=== PATIENT | female | born 1990 | race American Indian/Alaskan Native ===

== ENCOUNTER 2018-05-11 22:45 | Emergency (ER) | payer MEDICAID, OTHER ==
[2018-05-12 00:41] VITALS: BP 99/64
[2018-05-12 01:46] LABS: Bilirubin,Urine NEG (Negative); Blood,Urine NEG (Negative); Color,Urine Yellow (Yellow); Mucus,Urine 1+ /HPF; Protein,Urine <15 mg/dL mg/dL (Negative); WBC,Urine < 1.0 /HPF (0.0-6.0)
[2018-05-12 01:48] LABS: HCG Qualitative,Urine Negative (Negative)
--- NOTE | 2018-05-12 02:43 | Emergency Department Report ---
ED General Adult HPI - General Chief complaint: Sore Throat Stated complaint: THROAT PAIN Time Seen by Provider: 05/12/18 02:37 Source: patient Mode of arrival: Ambulatory Limitations: No Limitations - History of Present Illness Initial comments: 27-year-old -[place] female comes in complaining of sore throat 2 days with subjective fever yesterday. She also thinks that she has a urinary tract infection. She reports she has burning with urination. She is sexually active but uses condoms all the time. She does admit to vaginal discharge. She reports she has been using Chloraseptic for her throat. She does have a cough with lots of green thick mucus. -: days(s) (2) - Related Data Home Medications Medication Instructions Recorded Confirmed Last Taken Tablet 1 tab PO QDAY 03/15/15 07/27/15 03/14/15 17:00 Previous Rx's Medication Instructions Recorded Last Taken Type Albuterol Sulfate [Ventolin HFA] 2 puff IH Q4H PRN #1 hfa.aer.ad 03/15/15 Unknown Rx Azithromycin [Zithromax Z-CAMERON] 250 mg PO DAILY #1 pkg 03/15/15 Unknown Rx Loratadine [Claritin] 10 mg PO DAILY #30 tablet 03/15/15 Unknown Rx Labetalol [Normodyne TAB] 100 mg PO BID #60 tablet 07/27/15 Unknown Rx Ibuprofen [Motrin 600 MG tab] 600 mg PO Q8H PRN #30 tablet 05/12/18 Unknown Rx metroNIDAZOLE [Metronidazole] 500 mg PO TID 7 Days #21 tablet 05/12/18 Unknown Rx Allergies Allergy/AdvReac Type Severity Reaction Status Date / Time No Known Allergies Allergy Verified 07/21/15 03:07 ED Review of Systems ROS: Stated complaint: THROAT PAIN Other details as noted in HPI Constitutional: fever Eyes: denies: eye pain, eye discharge, vision change ENT: throat pain Respiratory: cough Cardiovascular: denies: chest pain, palpitations Endocrine: no symptoms reported Gastrointestinal: denies: abdominal pain, nausea, diarrhea Genitourinary: dysuria Musculoskeletal: denies: back pain, joint swelling, arthralgia Skin: denies: rash, lesions Neurological: denies: headache, weakness, paresthesias Psychiatric: denies: anxiety, depression Hematological/Lymphatic: denies: easy bleeding, easy bruising ED Past Medical Hx - Past Medical History Hx Hypertension: No Hx Congestive Heart Failure: No Hx Diabetes: No Hx Deep Vein Thrombosis: No Hx Renal Disease: No Hx Sickle Cell Disease: No Hx Seizures: No Hx Asthma: Yes (albuterol prn) Hx COPD: No Hx HIV: No - Surgical History Additional Surgical History: HEMORRHOIDECTOMY - Social History Smoking Status: Never Smoker - Medications Home Medications: Home Medications Medication Instructions Recorded Confirmed Last Taken Type Albuterol Sulfate [Ventolin HFA] 2 puff IH Q4H PRN #1 hfa.aer.ad 03/15/15 Unknown Rx Azithromycin [Zithromax Z-CAMERON] 250 mg PO DAILY #1 pkg 03/15/15 07/27/15 Unknown Rx Loratadine [Claritin] 10 mg PO DAILY #30 tablet 03/15/15 07/27/15 Unknown Rx Tablet 1 tab PO QDAY 03/15/15 07/27/15 03/14/15 17:00 History Labetalol [Normodyne TAB] 100 mg PO BID #60 tablet 07/27/15 Unknown Rx Ibuprofen [Motrin 600 MG tab] 600 mg PO Q8H PRN #30 tablet 05/12/18 Unknown Rx metroNIDAZOLE [Metronidazole] 500 mg PO TID 7 Days #21 tablet 05/12/18 Unknown Rx ED Physical Exam - General Limitations: No Limitations General appearance: alert, in no apparent distress - Head Head exam: Present: atraumatic, normocephalic - Eye Eye exam: Present: PERRL, EOMI - ENT ENT exam: Present: TM's normal bilaterally - Expanded ENT Exam Expanded Throat exam: Positive: tonsillar erythema, tonsillar exudate - Neck Neck exam: Present: normal inspection - Respiratory Respiratory exam: Present: normal lung sounds bilaterally. Absent: respiratory distress - Cardiovascular Cardiovascular Exam: Present: regular rate, normal rhythm. Absent: systolic murmur, diastolic murmur, rubs, gallop - GI/Abdominal GI/Abdominal exam: Present: soft, normal bowel sounds - Extremities Exam Extremities exam: Present: normal inspection - Neurological Exam Neurological exam: Present: alert, oriented X3 - Psychiatric Psychiatric exam: Present: normal affect, normal mood - Skin Skin exam: Present: warm, dry, intact, normal color. Absent: rash ED Course Vital Signs 05/12/18 00:39 Temperature 98.5 F Pulse Rate 72 Respiratory 20 Rate Blood Pressure 99/64 O2 Sat by Pulse 100 Oximetry ED Medical Decision Making - Medical Decision Making Patient's been seen about this provider in fast track. Negative strep tests Negative urine Positive wet prep for bacteria vaginosis greater than 20% clue cells Given penicillin G1 0.2 million units IM Discharge patient on metronidazole 500 mg by mouth 3 times a day 7 days dispensed 21 Critical care attestation.: If time is entered above; I have spent that time in minutes in the direct care of this critically ill patient, excluding procedure time. ED Disposition Clinical Impression: Acute pharyngitis Qualifiers: Pharyngitis/tonsillitis etiology: unspecified etiology Qualified Code(s): J02.9 - Acute pharyngitis, unspecified Disposition: TO HOME OR SELFCARE Is pt being admited?: No Does the pt Need Aspirin: No Condition: Stable Additional Instructions: Please take antibiotics as prescribed. If symptoms persist or gets worse follow -up with her primary care provider. Prescriptions: Ibuprofen [Motrin 600 MG tab] 600 mg PO Q8H PRN #30 tablet PRN Reason: Pain metroNIDAZOLE [Metronidazole] 500 mg PO TID 7 Days #21 tablet Referrals: PRIMARY CARE, [Primary Care Provider] - 3-5 Days Forms: STI Treatment and Prevention, Work/School Release Form(ED)
[2018-05-12] MEDS ORDERED: LIDOCAINE VISCOUS 2% PO ONE (03:04)
[2018-05-12] MEDS ORDERED: MOTRIN PO ONE (03:04)
[2018-05-12] MEDS ORDERED: BICILLIN L-A IM ONE (03:09)
== END 2018-05-12 04:15 | disposition home or self-care (01) ==
LOC: ED 22:45
DX: J02.9 Acute pharyngitis, unspecified (principal); R30.0 Dysuria; J45.909 Unspecified asthma, uncomplicated
CPT/HCPCS: 81001; 81025; 87116; 87210; 87430; 96372; 99283; J0561

== ENCOUNTER 2020-12-12 00:12 | Emergency (ER) | payer MEDICAID ==
--- NOTE | 2020-12-12 01:01 | XRay Report ---
CHEST 1 VIEW INDICATION / CLINICAL INFORMATION: Chest Pain. COMPARISON: None available. FINDINGS: SUPPORT DEVICES: None. HEART / MEDIASTINUM: No significant abnormality. LUNGS / PLEURA: No significant pulmonary or pleural abnormality. No pneumothorax. ADDITIONAL FINDINGS: No significant additional findings. IMPRESSION: 1. No acute findings. Signer Name: Anabelle Ruggiero MD Signed: 12/12/2020 12:56 AM Workstation Name: [id number]
[2020-12-12 01:31] LABS: Hematocrit 42.9 % (30.3-42.9); Hemoglobin 14.9 gm/dl (10.1-14.3); Mean Corpuscular HGB Conc 35 % (30-34); Mean Corpuscular Volume 95 fl (79-97); Red Blood Count 4.53 M/mm3 (3.65-5.03); Red Cell Distribution Width 12.7 % (13.2-15.2)
[2020-12-12 01:37] LABS: Platelet Count 133 K/mm3 (140-440)
[2020-12-12 01:38] LABS: Basophils % (Auto) 0.5 % (0.0-1.8); Eosinophils # (Auto) 0.1 K/mm3 (0.0-0.4); Eosinophils % (Auto) 2.3 % (0.0-4.3); Lymphocytes % (Auto) 24.2 % (13.4-35.0); Monocytes # (Auto) 0.7 K/mm3 (0.0-0.8); Monocytes % (Auto) 16.1 % (0.0-7.3)
[2020-12-12 01:49] LABS: Blood Urea Nitrogen 10 mg/dL (7-17); Calcium 9.2 mg/dL (8.4-10.2); Hemolysis Index 12
[2020-12-12 02:01] LABS: BUN/Creatinine Ratio 20
[2020-12-12 03:54] VITALS: BP 102/69
--- NOTE | 2020-12-12 03:59 | Emergency Department Report ---
ED Chest Pain HPI - General Chief Complaint: Chest Pain Stated Complaint: CHEST PAIN Time Seen by Provider: 12/12/20 03:39 Source: patient Mode of arrival: Ambulatory Limitations: No Limitations - History of Present Illness Initial Comments: 30-year-old female with right-sided chest pain x3 days. Patient states it feels like trapped gas. She denies any shortness of breath, nausea or vomiting. Worse with deep breath. Patient states she tried Deisy-Winona and times, but that provided no relief. She denies any leg pain or swelling. MD Complaint: chest pain -: days(s) (3) Onset: during rest Pain Location: right chest Pain Radiation: none Severity: moderate Severity scale (0 -10): 0 Quality: other (like gas) Consistency: constant Improves With: nothing Worsens With: inspiration, movement re: denies: nausea, vomting, diaphoresis, dyspnea Other Symptoms: denies: cough, fever - Related Data Home Medications Medication Instructions Recorded Confirmed Last Taken Tablet 1 tab PO QDAY 03/15/15 07/27/15 03/14/15 17:00 Previous Rx's Medication Instructions Recorded Last Taken Type Albuterol Sulfate [Ventolin HFA] 2 puff IH Q4H PRN #1 hfa.aer.ad 03/15/15 Unknown Rx Azithromycin [Zithromax Z-CAMERON] 250 mg PO DAILY #1 pkg 03/15/15 Unknown Rx Loratadine (Nf) [Claritin] 10 mg PO DAILY #30 tablet 03/15/15 Unknown Rx labetaloL [Labetalol 100mg TAB] 100 mg PO BID #60 tablet 07/27/15 Unknown Rx Ibuprofen [Motrin 600 MG tab] 600 mg PO Q8H PRN #30 tablet 05/12/18 Unknown Rx metroNIDAZOLE [Metronidazole] 500 mg PO TID 7 Days #21 tablet 05/12/18 Unknown Rx Naproxen [Naprosyn] 500 mg PO BID #20 tablet 12/12/20 Unknown Rx traMADoL [Ultram] 50 mg PO Q6HR PRN #7 tablet 12/12/20 Unknown Rx Allergies Allergy/AdvReac Type Severity Reaction Status Date / Time No Known Allergies Allergy Verified 07/21/15 03:07 Heart Score - HEART Score History: Slightly suspicious EKG: Normal Age: < 45 Risk factors: No known risk factors Troponin: < normal limit HEART Score: 0 ED Review of Systems ROS: Stated complaint: CHEST PAIN Other details as noted in HPI Comment: All other systems reviewed and negative Constitutional: denies: chills, fever Respiratory: denies: shortness of breath Cardiovascular: chest pain Musculoskeletal: other (Denies leg pain or swelling) ED Past Medical Hx - Past Medical History Previous Medical History?: Yes Hx Hypertension: No Hx Congestive Heart Failure: No Hx Diabetes: No Hx Deep Vein Thrombosis: No Hx Renal Disease: No Hx Sickle Cell Disease: No Hx Seizures: No Hx Asthma: Yes (albuterol prn) Hx COPD: No Hx HIV: No - Surgical History Past Surgical History?: Yes Additional Surgical History: HEMORRHOIDECTOMY - Social History Smoking Status: Current Every Day Smoker Substance Use Type: None - Medications Home Medications: Home Medications Medication Instructions Recorded Confirmed Last Taken Type Albuterol Sulfate [Ventolin HFA] 2 puff IH Q4H PRN #1 hfa.aer.ad 03/15/15 07/27/15 Unknown Rx Azithromycin [Zithromax Z-CAMERON] 250 mg PO DAILY #1 pkg 03/15/15 07/27/15 Unknown Rx Loratadine (Nf) [Claritin] 10 mg PO DAILY #30 tablet 03/15/15 07/27/15 Unknown Rx Tablet 1 tab PO QDAY 03/15/15 07/27/15 03/14/15 17:00 History labetaloL [Labetalol 100mg TAB] 100 mg PO BID #60 tablet 07/27/15 Unknown Rx Ibuprofen [Motrin 600 MG tab] 600 mg PO Q8H PRN #30 tablet 05/12/18 Unknown Rx metroNIDAZOLE [Metronidazole] 500 mg PO TID 7 Days #21 tablet 05/12/18 Unknown Rx Naproxen [Naprosyn] 500 mg PO BID #20 tablet 12/12/20 Unknown Rx traMADoL [Ultram] 50 mg PO Q6HR PRN #7 tablet 12/12/20 Unknown Rx ED Physical Exam - General Limitations: No Limitations General appearance: alert, in no apparent distress - Eye Eye exam: Present: normal appearance, EOMI - ENT ENT exam: Present: mucous membranes moist - Neck Neck exam: Present: normal inspection - Respiratory Respiratory exam: Present: normal lung sounds bilaterally. Absent: respiratory distress - Cardiovascular Cardiovascular Exam: Present: regular rate, normal rhythm - GI/Abdominal GI/Abdominal exam: Present: soft. Absent: distended, tenderness - Extremities Exam Extremities exam: Present: normal inspection - Neurological Exam Neurological exam: Present: alert, oriented X3 - Psychiatric Psychiatric exam: Present: normal affect, normal mood - Skin Skin exam: Present: warm, dry, intact, normal color ED Course Vital Signs 12/12/20 12/12/20 12/12/20 00:17 03:53 05:40 Temperature 98.9 F Pulse Rate 131 H 84 88 Respiratory 20 16 16 Rate Blood Pressure 113/69 Blood Pressure 102/69 [Right] O2 Sat by Pulse 100 100 100 Oximetry ED Medical Decision Making - Lab Data Result diagrams: 12/12/20 00:45 12/12/20 00:45 - EKG Data -: EKG Interpreted by Me EKG shows normal: sinus rhythm, axis, intervals, QRS complexes, ST-T waves Rate: tachycardia (rate 118) - EKG Data Interpretation: no acute changes - Radiology Data Radiology results: report reviewed, image reviewed - Differential Diagnosis pleurisy, pneumothorax, GERD Critical care attestation.: If time is entered above; I have spent that time in minutes in the direct care of this critically ill patient, excluding procedure time. ED Disposition Clinical Impression: Chest pain Disposition: - TO HOME OR SELFCARE Is pt being admited?: No Condition: Stable Instructions: Nonspecific Chest Pain, Adult, [id number], Pleurisy, [id number], Chest Pain (ED) Prescriptions: Naproxen [Naprosyn] 500 mg PO BID #20 tablet traMADoL [Ultram] 50 mg PO Q6HR PRN #7 tablet PRN Reason: Pain Referrals: PRIMARY CARE, [Primary Care Provider] - 3-5 Days [facility] [Provider Group] - 3-5 Days Time of Disposition: 05:22
--- NOTE | 2020-12-12 05:19 | Cat Scan Report ---
CTA CHEST WITH IV CONTRAST INDICATION / CLINICAL INFORMATION: Pt states RIGHT sided chest pain with S.O.B. x 3 days. Childhood history of Asthma.. TECHNIQUE: Axial CT images were obtained through the chest after injection of 100 mL IV contrast. 3 plane MIP an d/or 3D reconstructions were produced. All CT scans at this location are performed using CT dose redu ction for [facility] by means of automated exposure control. COMPARISON: Chest radiograph 12/12/2020 FINDINGS: PULMONARY ARTERIES: No pulmonary emboli. THORACIC AORTA: No significant abnormality. HEART: No significant abnormality. CORONARY ARTERIES: No significant calcification. PLEURA: No pleural effusion. No pneumothorax. LYMPH NODES: No significant adenopathy. LUNGS: No acute air space or interstitial disease. ADDITIONAL FINDINGS: None. UPPER ABDOMEN: No acute findings. SKELETAL STRUCTURES: No significant osseous abnormality. IMPRESSION: 1. No CT evidence for pulmonary embolism. 2. Both lungs are clear. Signer Name: Anabelle Ruggiero MD Signed: 12/12/2020 5:15 AM Workstation Name: [id number]
== END 2020-12-12 05:40 | disposition home or self-care (01) ==
LOC: ED 00:12
DX: R07.89 Other chest pain (principal); J45.909 Unspecified asthma, uncomplicated; F17.200 Nicotine dependence, unspecified, uncomplicated; Z79.899 Other long term (current) drug therapy
CPT/HCPCS: 36415; 71045; 71275; 80048; 84484; 85025; 93005; 99284; Q9967

== ENCOUNTER 2021-03-25 16:59 | Emergency (ER) | payer OTHER, MEDICAID ==
[2021-03-25 17:31] VITALS: BP 102/56
--- NOTE | 2021-03-25 17:51 | Emergency Department Report ---
ED ENT HPI - General Chief complaint: Earache Stated complaint: RIGHT EAR PAIN Time Seen by Provider: 03/25/21 17:27 Source: patient Mode of arrival: Ambulatory Limitations: No Limitations - History of Present Illness Initial comments: This is a 30-year-old male brought by mother nontoxic, well nourished in appearance, no acute signs of distress presents to the ED with c/o of right earache times several days. Patient denies any ear drainage. Patient denies any trauma to the area. Patient denies any mastoid tenderness or tragus tenderness. Patient denies hearing decrease or hearing changes. Patient denies any fever, chills, nausea, vomiting, chest pain, short of breath, headache or stiff neck. Patient denies any drug allergies or significant past medical history. MD complaint: ear pain -: days(s) Location: R ear Severity: mild Severity scale (0 -10): 8 Quality: aching Consistency: constant Improves with: none Worsens with: none Associated Symptoms: denies: fever, cough, gum swelling, toothache, pain with swallowing, sore throat, tinnitus, hearing loss, discharge from ear, rhinorrhea - Related Data Home Medications Medication Instructions Recorded Confirmed Last Taken Tablet 1 tab PO QDAY 03/15/15 07/27/15 03/14/15 17:00 Previous Rx's Medication Instructions Recorded Last Taken Type Albuterol Sulfate [Ventolin HFA] 2 puff IH Q4H PRN #1 hfa.aer.ad 03/15/15 Unknown Rx Azithromycin [Zithromax Z-CAMERON] 250 mg PO DAILY #1 pkg 03/15/15 Unknown Rx Loratadine (Nf) [Claritin] 10 mg PO DAILY #30 tablet 03/15/15 Unknown Rx labetaloL [Labetalol 100mg TAB] 100 mg PO BID #60 tablet 07/27/15 Unknown Rx Ibuprofen [Motrin 600 MG tab] 600 mg PO Q8H PRN #30 tablet 05/12/18 Unknown Rx metroNIDAZOLE [Metronidazole] 500 mg PO TID 7 Days #21 tablet 05/12/18 Unknown Rx Naproxen [Naprosyn] 500 mg PO BID #20 tablet 12/12/20 Unknown Rx traMADoL [Ultram] 50 mg PO Q6HR PRN #7 tablet 12/12/20 Unknown Rx Amoxicillin [Amoxicillin TAB] 875 mg PO BID #20 tablet 03/25/21 Unknown Rx Allergies Allergy/AdvReac Type Severity Reaction Status Date / Time No Known Allergies Allergy Verified 07/21/15 03:07 ED Dental HPI - General Chief complaint: Earache Stated complaint: RIGHT EAR PAIN Time Seen by Provider: 03/25/21 17:27 Source: patient Mode of arrival: Ambulatory Limitations: No Limitations - Related Data Home Medications Medication Instructions Recorded Confirmed Last Taken Tablet 1 tab PO QDAY 03/15/15 07/27/15 03/14/15 17:00 Previous Rx's Medication Instructions Recorded Last Taken Type Albuterol Sulfate [Ventolin HFA] 2 puff IH Q4H PRN #1 hfa.aer.ad 03/15/15 Unknown Rx Azithromycin [Zithromax Z-CAMERON] 250 mg PO DAILY #1 pkg 03/15/15 Unknown Rx Loratadine (Nf) [Claritin] 10 mg PO DAILY #30 tablet 03/15/15 Unknown Rx labetaloL [Labetalol 100mg TAB] 100 mg PO BID #60 tablet 07/27/15 Unknown Rx Ibuprofen [Motrin 600 MG tab] 600 mg PO Q8H PRN #30 tablet 05/12/18 Unknown Rx metroNIDAZOLE [Metronidazole] 500 mg PO TID 7 Days #21 tablet 05/12/18 Unknown Rx Naproxen [Naprosyn] 500 mg PO BID #20 tablet 12/12/20 Unknown Rx traMADoL [Ultram] 50 mg PO Q6HR PRN #7 tablet 12/12/20 Unknown Rx Amoxicillin [Amoxicillin TAB] 875 mg PO BID #20 tablet 03/25/21 Unknown Rx Allergies Allergy/AdvReac Type Severity Reaction Status Date / Time No Known Allergies Allergy Verified 07/21/15 03:07 ED Review of Systems ROS: Stated complaint: RIGHT EAR PAIN Other details as noted in HPI Comment: All other systems reviewed and negative Constitutional: denies: chills, fever Eyes: denies: eye pain, eye discharge, vision change ENT: ear pain. denies: throat pain, dental pain, hearing loss, congestion Respiratory: denies: cough, shortness of breath, wheezing Cardiovascular: denies: chest pain, palpitations Endocrine: no symptoms reported Gastrointestinal: denies: abdominal pain, nausea, diarrhea Genitourinary: denies: urgency, dysuria, discharge Musculoskeletal: denies: back pain, joint swelling, arthralgia Skin: denies: rash, lesions Neurological: denies: headache, weakness, paresthesias Psychiatric: denies: anxiety, depression Hematological/Lymphatic: denies: easy bleeding, easy bruising ED Past Medical Hx - Past Medical History Previous Medical History?: Yes Hx Hypertension: No Hx Congestive Heart Failure: No Hx Diabetes: No Hx Deep Vein Thrombosis: No Hx Renal Disease: No Hx Sickle Cell Disease: No Hx Seizures: No Hx Asthma: Yes (albuterol prn) Hx COPD: No Hx HIV: No - Surgical History Past Surgical History?: Yes Additional Surgical History: HEMORRHOIDECTOMY - Social History Smoking Status: Never Smoker Substance Use Type: Alcohol - Medications Home Medications: Home Medications Medication Instructions Recorded Confirmed Last Taken Type Albuterol Sulfate [Ventolin HFA] 2 puff IH Q4H PRN #1 hfa.aer.ad 03/15/15 07/27/15 Unknown Rx Azithromycin [Zithromax Z-CAMERON] 250 mg PO DAILY #1 pkg 03/15/15 07/27/15 Unknown Rx Loratadine (Nf) [Claritin] 10 mg PO DAILY #30 tablet 03/15/15 07/27/15 Unknown Rx Tablet 1 tab PO QDAY 03/15/15 07/27/15 03/14/15 17:00 History labetaloL [Labetalol 100mg TAB] 100 mg PO BID #60 tablet 07/27/15 Unknown Rx Ibuprofen [Motrin 600 MG tab] 600 mg PO Q8H PRN #30 tablet 05/12/18 Unknown Rx metroNIDAZOLE [Metronidazole] 500 mg PO TID 7 Days #21 tablet 05/12/18 Unknown Rx Naproxen [Naprosyn] 500 mg PO BID #20 tablet 12/12/20 Unknown Rx traMADoL [Ultram] 50 mg PO Q6HR PRN #7 tablet 12/12/20 Unknown Rx Amoxicillin [Amoxicillin TAB] 875 mg PO BID #20 tablet 03/25/21 Unknown Rx ED Physical Exam - General Limitations: No Limitations General appearance: alert, in no apparent distress - Head Head exam: Present: atraumatic, normocephalic - Eye Eye exam: Present: normal appearance - Expanded ENT Exam Expanded Ear exam: Present: normal external inspection TM/Canal exam: Erythema: Right TM, Bulging: Right TM Mouth exam: Present: normal external inspection. Absent: drooling, trismus, muffled voice Teeth exam: Present: normal inspection Throat exam: Positive: normal inspection, other (Uvula midline). Negative: tonsillar erythema, tonsillomegaly, tonsillar exudate, R peritonsillar mass, L peritonsillar mass - Neck Neck exam: Present: normal inspection, full ROM. Absent: tenderness, meningismus, lymphadenopathy - Respiratory Respiratory exam: Absent: respiratory distress - Cardiovascular Cardiovascular Exam: Present: regular rate - Extremities Exam Extremities exam: Present: full ROM - Back Exam Back exam: Present: full ROM - Neurological Exam Neurological exam: Present: alert, oriented X3, normal gait - Psychiatric Psychiatric exam: Present: normal affect, normal mood - Skin Skin exam: Present: warm, dry, intact, normal color. Absent: rash ED Course Vital Signs 03/25/21 17:29 Temperature 99.1 F Pulse Rate 67 Respiratory 20 Rate Blood Pressure 102/56 O2 Sat by Pulse 100 Oximetry - Reevaluation(s) Reevaluation #1: 03/25/21 17:52 Patient is speaking in full sentences with no signs of distress noted. ED Medical Decision Making - Medical Decision Making Patient be treated with amoxicillin. Vital signs are stable. Patient was instructed to follow-up with a primary care doctor in 3-5 days or if symptoms worsen and continue return to emergency room as soon as possible. At time of discharge, the patient does not seem toxic or ill in appearance. No acute signs of distress noted. Patient agrees to discharge treatment plan of care. No further questions noted by the patient. Critical care attestation.: If time is entered above; I have spent that time in minutes in the direct care of this critically ill patient, excluding procedure time. ED Disposition Clinical Impression: Right otitis media Qualifiers: Otitis media type: unspecified Qualified Code(s): H66.91 - Otitis media, unspecified, right ear Disposition: DC-01 TO HOME OR SELFCARE Is pt being admited?: No Does the pt Need Aspirin: No Condition: Stable Instructions: Otitis Media, Adult, Gulu-ed-Loou Additional Instructions: Follow-up with a primary care doctor in 3-5 days or if symptoms worsen and continue return to emergency room as soon as possible. Prescriptions: Amoxicillin [Amoxicillin TAB] 875 mg PO BID #20 tablet Referrals: PRIMARY CARE, [Referring] - 3-5 Days ROXY TAVERA MD [Staff Physician] - 3-5 Days Forms: Work/School Release Form(ED) Time of Disposition: 17:53
== END 2021-03-25 17:53 | disposition home or self-care (01) ==
LOC: ED 16:59
DX: H66.91 Otitis media, unspecified, right ear (principal); J45.909 Unspecified asthma, uncomplicated; Z90.89 Acquired absence of other organs; Z79.1 Long term (current) use of non-steroidal anti-inflammatories (NSAID); Z79.2 Long term (current) use of antibiotics; Z79.899 Other long term (current) drug therapy
CPT/HCPCS: 99282

== ENCOUNTER 2022-03-25 23:41 | Emergency (ER) | payer MEDICAID, OTHER ==
--- NOTE | 2022-03-26 00:56 | XRay Report ---
CHEST 2 VIEWS INDICATION / CLINICAL INFORMATION: CHEST PAIN. COMPARISON: One view of the chest from 12/12/2020. FINDINGS: SUPPORT DEVICES: None. HEART / MEDIASTINUM: No significant abnormality. LUNGS / PLEURA: No significant pulmonary abnormality. No significant pleural effusion. No pneumothora x. ADDITIONAL FINDINGS: No significant additional findings. IMPRESSION: 1. No acute abnormality of the chest. Signer Name: Evens Roberto MD Signed: 03/26/2022 12:52 AM Workstation Name: [id number]
[2022-03-26 01:32] LABS: Basophils % (Auto) 0.5 % (0.0-1.8); Eosinophils # (Auto) 0.2 K/mm3 (0.0-0.4); Eosinophils % (Auto) 4.5 % (0.0-4.3); Hematocrit 42.6 % (30.3-42.9); Hemoglobin 14.3 gm/dl (10.1-14.3); Lymphocytes # (Auto) 1.1 K/mm3 (1.2-5.4); Lymphocytes % (Auto) 20.2 % (13.4-35.0); Mean Corpuscular HGB Conc 34 % (30-34); Mean Corpuscular Volume 93 fl (79-97); Monocytes # (Auto) 0.8 K/mm3 (0.0-0.8); Monocytes % (Auto) 15.3 % (0.0-7.3); Platelet Count 148 K/mm3 (140-440); Red Blood Count 4.58 M/mm3 (3.65-5.03); Red Cell Distribution Width 12.6 % (13.2-15.2)
[2022-03-26 01:35] LABS: Alanine Aminotransferase 9 units/L (7-56); Albumin 4.3 g/dL (3.9-5); Blood Urea Nitrogen 14 mg/dL (7-17); Hemolysis Index 7
[2022-03-26 01:42] LABS: BUN/Creatinine Ratio 20
--- NOTE | 2022-03-26 09:00 | Emergency Department Report ---
Minor Respiratory - HPI Chief Complaint: Chest Pain Stated Complaint: SOB Time Seen by Provider: 03/26/22 09:00 Duration: 2 Days Pain Location: Chest Severity: mild Minor Respiratory: Yes Able to Tolerate Fluids, Yes Chest Pain, No Rhinorrhea, No Sore Throat, No Ear Pain, No Cough, No Sick Contacts, No Hemoptysis, No Shortness of Breath, No Fever Other History: Patient is a 31-year-old female that comes to the emergency room with left-sided chest pain. She came in during the night because she could not get comfortable when trying to sleep. Pain is worse with movement. Patient denies fever or chills. Patient denies cough. Patient is ambulatory, nontoxic [id number] on arrival to the fast track. When I first called for her in the waiting room she was not there. And then she walked in the ER front doors. She states that she is taking Gas-X and Deisy-Zillah at home with no relief. ED Review of Systems ROS: Stated complaint: SOB Other details as noted in HPI Comment: All other systems reviewed and negative ED Past Medical Hx - Past Medical History Previous Medical History?: Yes Hx Hypertension: No Hx Congestive Heart Failure: No Hx Diabetes: No Hx Deep Vein Thrombosis: No Hx Renal Disease: No Hx Sickle Cell Disease: No Hx Seizures: No Hx Asthma: Yes (albuterol prn) Hx COPD: No Hx HIV: No - Surgical History Past Surgical History?: No Additional Surgical History: HEMORRHOIDECTOMY - Family History Family history: no significant - Social History Smoking Status: Never Smoker Substance Use Type: Alcohol Minor Respiratory Exam - Exam General: Vital signs noted. No distress. Alert and acting appropriately. HEENT: Yes Moist Mucous Membranes, No Pharyngeal Erythema, No Pharyngeal Exudates, No Rhinorrhea, No Conjuctival Injection, No Frontal Tenderness, No Maxillary Tenderness Ear: Neither TM Bulge, Neither TM Erythema, Neither EAC Pain, Neither EAC Discharge Neck: Yes Supple, No Adenopathy Lungs: Yes Good Air Exchange, No Wheezes, No Ronchi, No Stridor, No Cough, No Labored Respirations, No Retractions, No Use of Accessory Muscles, No Other Abnormal Lung Sounds Heart: Yes Regular, No Murmur Abdomen: Yes Normal Bowel Sounds, No Tenderness, No Peritoneal Signs Skin: No Rash, No Edema Neurologic: Alert and oriented, no deficits. Musculoskeletal: Unremarkable. ED Course Vital Signs 03/25/22 23:45 Temperature 98.4 F Pulse Rate 97 H Respiratory 18 Rate Blood Pressure 132/78 O2 Sat by Pulse 100 Oximetry ED Medical Decision Making - Lab Data Result diagrams: 03/26/22 00:49 03/26/22 00:49 - EKG Data -: EKG Interpreted by Me EKG shows normal: sinus rhythm Rate: normal - EKG Data When compared to previous EKG there are: no significant change Interpretation: no acute changes - Radiology Data Radiology results: report reviewed, image reviewed No acute process - Medical Decision Making Vital Signs 03/25/22 23:45 Temperature 98.4 F Pulse Rate 97 H Respiratory 18 Rate Blood Pressure 132/78 O2 Sat by Pulse 100 Oximetry Labs 03/26/22 03/26/22 03/26/22 00:49 00:49 03:48 WBC 5.5 RBC 4.58 Hgb 14.3 Hct 42.6 MCV 93 MCH 31 MCHC 34 RDW 12.6 L Plt Count 148 Lymph % (Auto) 20.2 [place] % (Auto) 15.3 H Eos % (Auto) 4.5 H Baso % (Auto) 0.5 Lymph # (Auto) 1.1 L [place] # (Auto) 0.8 Eos # (Auto) 0.2 Baso # (Auto) 0.0 Seg Neutrophils % 59.5 Seg Neutrophils # 3.3 Sodium 138 Potassium 3.8 Chloride 103.8 Carbon Dioxide 24 Anion Gap 14 BUN 14 Creatinine 0.7 Estimated GFR > 60 BUN/Creatinine Ratio 20 Glucose 96 Calcium 9.0 Total Bilirubin 0.40 AST 14 ALT 9 Alkaline Phosphatase 58 Troponin T < 0.010 < 0.010 Total Protein 7.5 Albumin 4.3 Albumin/Globulin Ratio 1.3 EKG normal X-ray normal Troponin negative x2 Labs normal Pain reproducible with movement Patient being given Toradol IM Patient discharged home with discharge plan of care including diet, activity, medications and follow-up. She verbalizes understanding. - Differential Diagnosis URI versus musculoskeletal pain Critical care attestation.: If time is entered above; I have spent that time in minutes in the direct care of this critically ill patient, excluding procedure time. ED Disposition Clinical Impression: Musculoskeletal pain Disposition: HOME / SELF CARE / HOMELESS Is pt being admited?: No Does the pt Need Aspirin: No Condition: Stable Instructions: Musculoskeletal Pain Additional Instructions: Motrin or Tylenol for pain Follow-up with PCP if pain persist Referral below Referrals: ROXY TAVERA MD [Staff Physician] - 3-5 Days Forms: Work/School Release Form(ED) Time of Disposition: 09:12
[2022-03-26] MEDS ORDERED: KETOROLAC 60 MG/2 ML INJ IM ONE (09:11)
[2022-03-26 09:31] VITALS: BP 129/74
--- NOTE | 2022-03-27 17:53 | Electrocardiograph Report ---
[facility] Test Date: 2022-03-25 Test Time: 23:49:40 Pat Name: SETH PALMER Department: Room: Gender: F Rehabilitation Coordinator: DEBBIE : 1990 Requested By: CASSANRDA MILLER Order Number: [id number] Reading MD: Jen Jean Measurements Intervals [place] Rate: 92 P: 46 PA: 160 QRS: 32 QRSD: 80 T: 65 QT: 357 QTc: 443 Interpretive Statements Sinus rhythm Low voltage, precordial leads No previous ECG available for comparison Electronically Signed On 03-27-2022 17:52:50 EDT by Jen Jean
== END 2022-03-26 09:31 | disposition home or self-care (01) ==
LOC: ED 23:41
DX: M79.18 Myalgia, other site (principal); J45.909 Unspecified asthma, uncomplicated
CPT/HCPCS: 36415; 71046; 80053; 84484; 85025; 93005; 96372; 99283; J1885